=== PATIENT | female | born 1995 | race African-American/Black ===

== ENCOUNTER 2016-10-13 20:10 | Emergency (ER) | payer OTHER ==
[~2016-10-13] VITALS: Ht 157.5 cm; Wt 51.2 kg
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
[~2016-10-13 20:10] MED LIST: NAPROSYN500 MG PO
== END 2016-10-14 00:56 | disposition home or self-care (01) ==
LOC: CED 20:10
DX: S76.011A Strain of muscle, fascia and tendon of right hip, initial encounter (principal); S46.912A Strain of unspecified muscle, fascia and tendon at shoulder and upper arm level, left arm, initial encounter; F32.9 Major depressive disorder, single episode, unspecified; V43.62XA Car passenger injured in collision with other type car in traffic accident, initial encounter
CPT/HCPCS: 73030; 73502; 84703; 99284